=== PATIENT | male | born 1960 | race Caucasian/White ===

== ENCOUNTER → 2018-10-06 | Outpatient (CLI) | payer BC ==
--- NOTE | 2018-10-14 10:05 | PCVCIMAG ---
APPROVED REPORT Study performed: 10/06/2018 15:47:18 Exam: Stress Echocardiogram Indication: CAD Stress Nurse: Roxanne Roberts RN Status: routine Ht: 5 ft 9 in HR: 62 bpm BP: 110/68 mmHg Rhythm: NSR Medical History Medical History: HTN, Hyperlipidemia, Elevated cor ca score Cardiac Risk Factors: HTN, Hyperlipidemia Previous Cardiac Procedures: none Pretest Chest Pain Characteristics: No chest pain Exercise History: Physically active Procedure The patient underwent an Exercise Stress Test using the Amari Protocol. Blood pressure, heart rate, and EKG were monitored. An Echocardiogram was performed by auto brake technician in four stages in quad fashion. At peak stress, four selected images were obtained and placed side by side with resting images for comparison. Stress Test Details Stress Test: Exercise stress testing was performed using a Amari protocol. HR Resting HR: 62 bpmMax Heart Rate (APMHR): 164 bpm Max HR Achieved: 148 bpmTarget HR (85% APMHR): 139 bpm % of APMHR: 90 Recovery HR: 83 bpm HR response to stress: Normal HR response to stress BP Resting BP: 110/68 mmHg Max BP: 160/66 mmHg Recovery BP: 124/70 mmHg BP response to stress: Normal blood pressure response to stress. ECG Resting ECG: Sinus Rhythm, NSSTT changes Stress ECG: Sinus Rhythm, nonspecific ST-T abnormalities ST Change: Eqivocally ischemic Maximum ST Deviation: -1.15 mm Arrhythmia: OCC PACs Recovery ECG: Sinus Rhythm, nonspecific ST-T abnormalities Recovery ST Change: Non-ischemic Recovery Arrhythmia: PACs Clinical Reason for Termination: Maximal effort Stress Symptoms: fatigue Exercise duration: 9 min 20 sec Highest Stage Achieved: Stage 4: 4.2 mph at 16% grade. Exercise capacity: 11.2 METs Overall Exercise Capacity for Age: Good Scale: Active Angina Score: None No complications. Stress ECG Conclusion The patient exercised according to the AMARI protocol for 9:20 mins; achieving a work level of 11.2 METS. The resting heart rate of 62 bpm munir to a maximum heart rate of 148 bpm. This value represents 90% of the maximal, age-predicted heart rate. The resting blood pressure of 110/68 mmHg, munir to a maximum blood pressure of160/66 mmHg. The exercise test was stopped due to fatigue. Fabian Treadmill Score is 14.8 which is Low risk. Pre-Stress Echo The resting Echocardiogram showed normal left ventricular contractility with an estimated Ejection Fraction of about 55-60%. Normal wall motion in all segments on baseline images. Post-Stress Echo The stress Echocardiogram showed normal left ventricular contractility with an estimated Ejection Fraction of about 65-70%. Normal augmentation of wall motion in all segments on post stress images. Clinical No clinical or ECG evidence for ischemia. Conclusion Clinical Response: Non-ischemic Exercise Capacity: Average Stress ECG Response: Equivocal Stress Echo Images: Non-ischemic No clinical or echocardiographic evidence for ischemia. Equivocal EKG changes. No echocardiographic evidence for exercise induced ischemia. Normal stress echocardiogram with maximal exercise stress. Normal color doppler. No regurgitation or stenosis present on pulmonic, mitral, tricuspid or aortic valves. Dilated ascending aorta at 4.1 is seen. <Conclusion> No clinical or echocardiographic evidence for ischemia. Equivocal EKG changes. No echocardiographic evidence for exercise induced ischemia. Normal stress echocardiogram with maximal exercise stress. Normal color doppler. No regurgitation or stenosis present on pulmonic, mitral, tricuspid or aortic valves. Dilated ascending aorta at 4.1 is seen.
== END | disposition home or self-care (01) ==
LOC: PCVCIMAG 15:30
PROVIDERS: ATTEND Internal Medicine Cardiovascular Disease
DX: I10 Essential (primary) hypertension (principal); R93.1 Abnormal findings on diagnostic imaging of heart and coronary circulation; R06.02 Shortness of breath; E78.5 Hyperlipidemia, unspecified
CPT/HCPCS: 93325; 93351